=== PATIENT | female | born 1975 | race Two or more races ===

== ENCOUNTER 2021-03-25 08:52 | Emergency (ER) | payer OTHER, SELFPAY ==
--- NOTE | ~2021-03-25 | XR_ITS ---
EXAMINATION: XR lumbar spine 2-3V EXAM DATE: 03/25/2021 10:06 INDICATION: Right sided low back pain, X 2 days. No known recent injury. TECHNIQUE: Lumber spine frontal, lateral, lateral L5-S1 projections for interpretation. There is no prior study for comparison. FINDINGS: Mild lumbar facet arthropathy. Mild L4-5 and L5-S1 disc disease. The vertebral body and dis c heights are otherwise well maintained. The vertebral bodies are aligned in the AP dimension. Sacrum , sacroiliac joints, sacral arcuate lines are intact. Paraspinal soft tissue is unremarkable. IMPRESSION: Mild lumbar spondylosis. Reviewed, dictated and finalized at location A. IMPRESSION: Mild lumbar spondylosis.
[2021-03-25 08:56] VITALS: BP 128/85; PULSE 95; RESP 17; TEMP 36.4; O2SAT 100
--- NOTE | 2021-03-25 09:54 | ED.BACK ---
HPI - Back Pain/Injury General Chief Complaint: Back Pain/Injury Stated Complaint: lower right back pain Time Seen by Provider: 03/25/21 09:36 Source: patient Mode of arrival: ambulatory Limitations: no limitations History of Present Illness HPI Narrative: This is a 45-year-old female that presents to the emergency department for right-sided lower back pain present x2 days. No certain injury or trauma. Reports she does do a lot of lifting at work. Pain is in the right side of the low back. Worse with movement and palpation of the area. Pain does not radiate. She took anti-inflammatories with some relief. Denies fever, abdominal pain, vomiting, dysuria, hematuria, saddle anesthesia, or bowel/bladder incontinence. Related Data Allergies Allergy/AdvReac Type Severity Reaction Status Date / Time No Known Allergies Allergy Verified 10/23/19 06:11 Review of Systems Review of Systems: Narrative: CONSTITUTIONAL: Denies fever GASTROINTESTINAL: Denies abdominal pain, nausea, vomiting GENITOURINARY: Denies dysuria or hematuria. SKIN: Denies rash MUSCULOSKELETAL: Reports back pain, joint pain, and myalgia. NEUROLOGIC: Denies numbness, or weakness. All systems reviewed & are unremarkable except as noted in HPI and below PMFSH Past Medical History Medical History (Updated 03/25/21 @ 10:41 by Annika Gasca PA-C) History of hypertension Social History Social History (Updated 03/25/21 @ 09:56 by Annika Gasca PA-C) Substance use: never Gender identity (if verbalized by the patient): Female Exam Narrative: Exam Narrative: GENERAL: Well-appearing, well-nourished, and in no acute distress. HEAD: Normocephalic, atraumatic. EYES: EOMI. CHEST: Clear to auscultation. No respiratory distress. No wheezes rales or rhonchi HEART: Regular rate and rhythm. No murmur heard. Normal peripheral pulses. BACK: No midline spinal tenderness. Tender to palpation of right lumbar paraspinal musculature EXTREMITIES: Normal range of motion. No edema. Strength equal in bilateral lower extremities (5/5). Normal DP pulses SKIN: Warm, dry, no rash. NEURO: No focal deficits. Alert and oriented x3. PSYCH: Normal mood and affect Course Vital Signs Vital signs: Vital Signs Temperature 97.6 F 03/25/21 08:56 Pulse Rate 95 03/25/21 08:56 Respiratory Rate 17 03/25/21 08:56 Blood Pressure 128/85 03/25/21 08:56 Pulse Oximetry 100 03/25/21 08:56 Temperature 97.6 F 03/25/21 08:56 Pulse Rate 95 03/25/21 08:56 Respiratory Rate 17 03/25/21 08:56 Blood Pressure 128/85 03/25/21 08:56 Pulse Oximetry 100 03/25/21 08:56 MDM - Back Pain/Injury MDM Narrative Medical decision making narrative: Patient presents the emergency department for low back pain x2 days. No recent injury or trauma. Patient does report a lot of lifting at work. No midline spinal tenderness. Patient is tender palpation of the right lumbar paraspinal musculature. Lumbar spine x-ray shows mild lumbar spondylosis. Patient reports improvement with Tylenol and Valium. She was instructed on care of muscle strain. She is to follow-up with her primary care doctor. She was given warnings to return to the ER Imaging Data Radiologist's impression: ITS Impressions Lumbar Spine X-Ray 03/25/21 10:12 IMPRESSION: Mild lumbar spondylosis. Critical Care Time Critical Care Time Critical Care Time: No Discharge Plan Discharge Clinical Impression: Strain of lumbar region Qualifiers: Encounter type: initial encounter Qualified Code(s): S39.012A - Strain of muscle, fascia and tendon of lower back, initial encounter Patient Disposition: Home, Self-Care Condition: Stable Instructions: Acute Low Back Pain (ED) Additional Instructions: Return to the ER if you experience fever, abdominal pain with nausea and vomiting, pain or burning with urination, blood in the urine, weakness, numbness, bowel/bladder incontinence, or any o
[2021-03-25] MEDS: diazePAM INJ (*CRX) 10 MG/2 ML SYRINGE 5 MG IM (10:08)
[2021-03-25] MEDS: ACETAMINOPHEN 500 MG TABLET 1000 MG PO (10:08)
[2021-03-25 10:58] VITALS: BP 156/106; PULSE 66; RESP 14; O2SAT 99
== END 2021-03-25 10:58 | disposition home or self-care (01) ==
PROVIDERS: Emergency Provider Emergency Medicine; PCP Nurse Practitioner Family
DX: S39.012A Strain of muscle, fascia and tendon of lower back, initial encounter (principal); I10 Essential (primary) hypertension; M47.816 Spondylosis without myelopathy or radiculopathy, lumbar region; X50.9XXA Other and unspecified overexertion or strenuous movements or postures, initial encounter
CPT/HCPCS: 72100; 96372; 99283; A9270; J3360

== ENCOUNTER 2022-09-01 08:15 | Emergency (ER) | payer OTHER, SELFPAY ==
--- NOTE | ~2022-09-01 | CT_ITS ---
EXAMINATION: CT abdomen pelvis wo con DATE: 09/01/2022 09:34 INDICATION: Left flank pain. Low back pain. TECHNIQUE: Computed tomography (CT) of the abdomen and pelvis was performed without intravenous contr ast. Automated exposure control and iterative reconstruction technique were employed. The dose-length product was 240.36 mGy-cm. COMPARISON: None. FINDINGS: The visualized portions of the lung bases and is a mild atelectasis. No pleural effusion. T he heart size is normal. No pericardial effusion. The liver is normal. The gallbladder is normal in s ize. The spleen, pancreas, adrenal glands, and kidneys are normal. There is no urolithiasis. There ar e no dilated loops of bowel. The appendix is normal. There are no pathologically enlarged lymph nodes . There is no free intraperitoneal fluid. There is a 3.8 cm subserosal fibroid of the uterus. There i s mild thoracolumbar spondylosis. IMPRESSION: 1. No urolithiasis. 2. Uterine fibroid. Reviewed, dictated and finalized at location A. [employer]
[2022-09-01 08:18] VITALS: BP 153/100; PULSE 78; RESP 20; TEMP 36.7; O2SAT 100
[2022-09-01 09:01] LABS: Appearance Urine Clear (Clear); Bilirubin Urine Negative (Negative); Blood Urine Trace-intact (Negative); Color Urine Yellow (Yellow); Glucose Urine UA Negative (Negative); Ketones Urine Negative (Negative); Leukocyte Esterase Ur Negative LEU/UL (Negative); Nitrate Urine Negative (Negative); Protein Urine Negative (Negative); Specific Grav Ur 1.025 (1.001-1.035); Urobilinogen Urine 0.2 mg/dL (<2.0)
[2022-09-01 09:18] LABS: Mucus Urine Rare /lpf; Squamous Epithelial Cell Urine Occasional /hpf (Few); WBC Urine 0-3 /hpf
[2022-09-01 09:21] LABS: Add Urine Microscopic? YES
--- NOTE | 2022-09-01 09:25 | ED.BACK ---
HPI - Back Pain/Injury General Chief Complaint: Back Pain/Injury Stated Complaint: L flank pain Time Seen by Provider: 09/01/22 09:01 Source: patient Mode of arrival: ambulatory Limitations: no limitations History of Present Illness HPI Narrative: Patient is a 47-year-old female who presents the ED with report of left lower back pain. Patient reports the pain has been intermittent for the past 1 month and seems to be worse after working/standing long hours. She has been taking Tylenol, stretching, using heating pad. The pain seems to be worsening over the last couple days, at times radiates around to her left lower abdomen and down her leg. She denies history of similar pain. No history of kidney stones. Occasional nausea, but denies vomiting, dysuria, hematuria, fever, incontinence, saddle anesthesia. Related Data Allergies Allergy/AdvReac Type Severity Reaction Status Date / Time No Known Allergies Allergy Verified 09/01/22 08:38 Review of Systems Review of Systems: CONSTITUTIONAL: Denies fever, chills, or sweats. CARDIOVASCULAR: Denies chest pain. RESPIRATORY: Denies dyspnea. GASTROINTESTINAL: Reports LLQ ABD pain. Denies constipation, nausea, vomiting, or diarrhea. GENITOURINARY: Denies incontinence, dysuria or hematuria. MUSCULOSKELETAL: Reports L lower back pain, radiates down LLE. NEUROLOGIC: Denies tingling, numbness, or weakness. All systems reviewed & are unremarkable except as noted in HPI and below PMFSH Past Medical History Medical History HTN (hypertension) Surgical History Surgical History No pertinent past surgical history Social History Social History (Updated 09/01/22 @ 09:27 by Hillary Santana PA-C) Smoking status: Never smoker Substance use: never Gender identity (if verbalized by the patient): Female Exam Narrative: GENERAL: Well appearing, well-nourished, non-toxic, in no acute distress. HEAD: Normocephalic, atraumatic. NECK: Supple. No adenopathy, no masses. RESPIRATORY: Airway patent, respirations nonlabored. Clear to auscultation bilaterally, no rales, rhonchi, wheezing. CARDIOVASCULAR: Regular rate and rhythm without murmurs, rubs, or gallops. Peripheral pulses 2+ and equal bilaterally. ABDOMINAL: Soft, no significant tenderness to palpation, nondistended, no hepatosplenomegaly. Normoactive BS. MUSCULOSKELETAL: Moves all extremities. Strength/ROM intact without gross deformities. No midline thoracic or lumbar spinal tenderness. No bony deformities or step-offs. Point tenderness over left SI joint. Positive straight leg raise on left with reproduction of pain in left lower back. SKIN: Warm, dry, normal color. No rashes. NEURO: A&O X3. Speech clear. Cranial nerves II-XII grossly intact. Steady gait. No ataxic movements. PSYCHIATRIC: Appropriate mood and affect. Normal interaction. Course Vital Signs Vital signs: Vital Signs Temperature 98.0 F 09/01/22 08:18 Pulse Rate 78 09/01/22 08:18 Respiratory Rate 20 09/01/22 08:18 Blood Pressure 153/100 H 09/01/22 08:18 Pulse Oximetry 100 09/01/22 08:18 Oxygen Delivery Room Air 09/01/22 08:18 Temperature 98.0 F 09/01/22 08:18 Pulse Rate 78 09/01/22 08:18 Respiratory Rate 20 09/01/22 08:18 Blood Pressure 153/100 H 09/01/22 08:18 Pulse Oximetry 100 09/01/22 08:18 Oxygen Delivery Room Air 09/01/22 08:18 MDM - Back Pain/Injury MDM Narrative Medical decision making narrative: Patient presented to ED with 1 month history of intermittent left lower back pain, radiating to abdomen and down leg. Vital stable upon arrival. Exam consistent with sciatica with point tenderness over SI joint, reproduction of pain with straight leg raise. No red flag symptoms. No signs of cord compression or cauda equina. No systemic symptoms. No midline spinal tenderness. Patient did h
[2022-09-01] MEDS: KETOROLAC (*BKC) 60 MG/2 ML VIAL IM (10:51)
== END 2022-09-01 10:25 | disposition home or self-care (01) ==
PROVIDERS: Emergency Provider Emergency Medicine; PCP Nurse Practitioner Family
DX: M54.16 Radiculopathy, lumbar region (principal); M54.32 Sciatica, left side; I10 Essential (primary) hypertension
CPT/HCPCS: 74176; 81001; 81025; 96372; 99284; J1885

== ENCOUNTER 2023-02-14 14:26 | Emergency (ER) | payer OTHER, SELFPAY ==
--- NOTE | 2023-02-14 15:07 | PC.NURSE ---
called to be triaged not in waiting room at this time.
--- NOTE | 2023-02-14 15:20 | PC.NURSE ---
called again to be triaged, not in waiting
== END 2023-02-14 15:50 | disposition left against medical advice (07) ==
PROVIDERS: PCP Nurse Practitioner Family
DX: Z53.21 Procedure and treatment not carried out due to patient leaving prior to being seen by health care provider (principal)
CPT/HCPCS: 99199

== ENCOUNTER 2023-06-15 23:21 | Emergency (ER) | payer OTHER, SELFPAY ==
--- NOTE | 2023-06-15 23:40 | PC.NURSE ---
Pt left before being triaged.
== END 2023-06-15 23:40 | disposition left against medical advice (07) ==
LOC: ANHED 23:44
PROVIDERS: PCP Nurse Practitioner Family
DX: Z53.21 Procedure and treatment not carried out due to patient leaving prior to being seen by health care provider (principal)
CPT/HCPCS: 99199

== ENCOUNTER 2023-06-17 17:46 | Emergency (ER) | payer OTHER, SELFPAY ==
[2023-06-17 18:21] VITALS: BP 172/100; PULSE 83; RESP 16; TEMP 36.9; O2SAT 100
--- NOTE | 2023-06-17 19:56 | ED.BACK ---
HPI - Back Pain/Injury General Chief Complaint: Back Pain/Injury Stated Complaint: back pain Time Seen by Provider: 06/17/23 19:15 History of Present Illness HPI Narrative: Patient is a 48-year-old female presenting with lower back pain. Patient states that she has intermittent chronic lower back pain and has had episodes of sciatica in the past. She broke her left ankle several months ago and had to have surgery. States that she has been recovering well in regards to this injury but she feels that she has been compensating by using her right leg more. States that unfortunately she has had an acute exacerbation of her lower back pain. States that it radiates into both of her buttocks and shoots down her left leg. Is worse with certain movements. States that she has been taking Tylenol with minimal relief. No numbness or weakness, saddle anesthesia, fevers or chills, bladder or bowel incontinence. No recent injuries. Related Data Allergies Allergy/AdvReac Type Severity Reaction Status Date / Time No Known Allergies Allergy Verified 06/17/23 18:26 Review of Systems Review of Systems: All systems reviewed & are unremarkable except as noted in HPI and below PMFSH Past Medical History Medical History HTN (hypertension) Surgical History Surgical History No pertinent past surgical history Social History Social History Smoking status: Never smoker Substance use: never Gender identity (if verbalized by the patient): Female Exam Narrative: GENERAL: Well-appearing and in no acute distress. Very pleasant and cooperative HEAD: Normocephalic, atraumatic. EYES: PERRLA and EOMI. ENT: No epistaxis NECK: Supple. CHEST: No respiratory distress. HEART: Regular rate and rhythm. Normal peripheral pulses. ABDOMEN: nondistended. EXTREMITIES: Normal range of motion. No edema. 2+ DP bilaterally BACK: +bilateral paraspinal tenderness lumbar spine extending into both buttocks SKIN: Warm, dry, no rash. NEURO: Alert and oriented x3. 5/5 strength BLE PSYCH: Normal mood and affect. Course Vital Signs Vital signs: Vital Signs Temperature 98.5 F 06/17/23 18:21 Pulse Rate 83 06/17/23 18:21 Respiratory Rate 16 06/17/23 18:21 Blood Pressure 172/100 H 06/17/23 18:21 Pulse Oximetry 100 06/17/23 18:21 Oxygen Delivery Room Air 06/17/23 18:21 Temperature 98.5 F 06/17/23 18:21 Pulse Rate 83 06/17/23 18:21 Respiratory Rate 16 06/17/23 18:21 Blood Pressure 172/100 H 06/17/23 18:21 Pulse Oximetry 100 06/17/23 18:21 Oxygen Delivery Room Air 06/17/23 18:21 MDM - Back Pain/Injury MDM Narrative Medical decision making narrative: Patient is a 48-year-old female presenting with acute on chronic lower back pain. Vitals are stable. Exam remarkable for the above. Patient states that this exacerbation is in the setting of a recent ankle injury that has been causing her to compensate with her right leg. States that she has been taking Tylenol with minimal relief. She denies any red flag symptoms or recent trauma necessitating imaging. We will give her a dose of IM Toradol and a dose of prednisone. We will send in for a steroid burst as well as 800 mg ibuprofen and Flexeril to be used as needed. Advised PCP follow-up. Appropriate return precautions given. Patient voiced understanding and is agreeable with plan. Discharged in stable condition. Differential Diagnosis Differential diagnosis: Likely lumbar radiculopathy, sciatica and strain of lumbar region Medical Records Attestation: I reviewed the patient's medical records. Critical Care Time Critical Care Time Critical Care Time: No Discharge Plan Discharge Clinical Impression: Lumbar radiculopathy Patient Disposition: Home, Self-Care Condition: Stable
[2023-06-17 20:00] VITALS: BP 170/91; PULSE 93; RESP 18; O2SAT 100
[2023-06-17] MEDS: predniSONE 20 MG TABLET 40 MG PO (20:02)
[2023-06-17] MEDS: KETOROLAC 30 MG/ML VIAL (*BKC) IM (20:03)
== END 2023-06-17 20:21 | disposition home or self-care (01) ==
LOC: ANHED 20:10
PROVIDERS: Emergency Provider Emergency Medicine; PCP Nurse Practitioner Family
DX: M54.16 Radiculopathy, lumbar region (principal); I10 Essential (primary) hypertension
CPT/HCPCS: 96372; 99283; J1885; J7512

== ENCOUNTER 2025-03-08 06:08 | Emergency (ER) | payer BC, SELFPAY ==
--- OUTSIDE RECORDS SUMMARY | 2025-03-08 06:09 | XMS_ITS | Data Portability ---
Author Organization [facility] Address [address] [place] [address] Care Team Providers Care Cashier Office Name Role Phone JIM MORALES Primary Care Provider Assessment No assessment recorded. Plan of Treatment Reminders Order Date Submit Date Provider Last Modified By Organization Details Last Modified Time Details Appointments ACUTE 15 2024 04:00P JERMAN Mckeon Not available Not available Not available Lab lipid panel, serum 2023 024 [facility], [address] [place], [place] [address]kayce Diogo, [address], [place], [address], 05/02/2024 10:15:47 CMP, serum or plasma 2023 024 [facility], [address] [place] [address], [address], [place], [address], 05/02/2024 10:15:48 albumin/c reatinine , mass ratio, urine 2023 024 [facility], [address] [place] [address], [address], [place], [address], 05/02/2024 10:15:46 pap, IG + HR HPV 2023 024 [facility], [address] [place] [address], [address], [place], [address], 05/03/2024 14:16:24 Referral physical therapist referral - left sided sciatica- please eval and treat 2023 024 [facility], [address], [place], [address], 10/26/2024 11:01:37 gastroent erologist referral - due for colon cancer screening 2023 [facility], [address], [address], [place], [address], 11/12/2024 12:16:45 Procedures None recorded. Surgeries None recorded. Imaging MAMMO, screening , digital, bilateral 2023 [facility] Scheduling, [facility], [place], [address], 07/24/2024 09:47:45 Medication Orders losartan 100 mg tablet 2023 024 [facility]45931, [address], [place], [place], [id number], 09/26/2024 17:21:39 amlodipin e 5 mg tablet 2023 024 [facility] #06488, [address], [place], [place], [id number], 09/26/2024 17:21:35 losartan 100 mg tablet 2023 024 [facility] #46053, [address], [place], [place], [id number], 09/11/2024 10:38:56 amlodipin e 5 mg tablet 2023 024 [facility] #[id number], [address], [place], [place], [id number], 08/09/2024 17:21:34 cyclobenz aprine 10 mg tablet 2023 024 [facility] #40398, [address], [place], [place], [id number], 09/11/2024 10:39:22 losartan 50 mg tablet 2023 024 [facility] #01233, [address], [place], [place], [id number], 09/11/2024 10:39:20 amlodipin e 5 mg tablet 2023 024 [facility] #[id number], [address], [place], [place], [id number], 07/11/2024 14:57:59 amlodipin e 5 mg tablet 2023 024 [facility] #[id number], [address], [place], [place], [id number], 05/01/2024 09:40:01 losartan 25 mg tablet 2023 024 [facility] #58059, [address], [place], [place], [id number], 07/11/2024 14:57:53 sertralin e 50 mg tablet 2023 024 [facility] #[id number], [address], [place], [place], [id number], 07/11/2024 14:59:53 Patient TargetsNo targets recorded. Patient Instructions Encounter Date Encounter Id Patient Instructions Last Modified By Organization Details Last Modified Time 05/01/2024 [id number] A healthy lifestyle: care instructions Not available 05/01/2024 09:39:07 07/11/2024 [id number] piriformis syndrome: exercises Not available 07/12/2024 22:39:11 Reason for Referral Stonemason Referral for Screening for malignant neoplasm of colon due for colon cancer screening Referring Physician: Jim Morales, [facility], Encounter Date: 07/11/2024 Physical Therapist Referral for Left side sciatica left sided sciatica- please eval and treat Referring Physician: Jim Morales [employer], Encounter Date: 08/09/2024 Results Created Date Observation Date Name Description Value Unit Range Abnormal Flag Note LastModifiedBy Organization Detail LastModifiedTime 04/12/2004/12/2023 Staph yloco ccus aureu s and Methi cilli n-res istan t Staph yloco ccus aureu s panel - Nose by CRISTINA with probe detec tion MRSA, nasal NEGATI VE MRSA, nasal Not Available Not Available 12/25/2024 05:17:05 04/12/2004/12/2023 Staph yloco ccus aureu s and Methi cilli n-res istan t Staph yloco ccus aureu s panel - Nose by CRISTINA with probe detec tion staph aureus, nasal NEGATI VE staph aureu s, nasal Not Available Not Available 12/25/2024 05:17:05 05/01/20 24 05/02/2024 ALBUM IN/CR EATIN INE RATIO ,URIN E creatinine, urine 91.8 mg/dL notest ab. Not Available [facility] ([facility]) [address] [place], [address], 05/02/2024 10:15:46 05/01/20 24 05/02/2024 ALBUM IN/CR EATIN INE RATIO ,URIN E albumin, urine <3.0 ug/mL notest ab. Not Available [facility] ([facility]) [address] [facility], [place], [address], 05/02/2024 10:15:46 05/01/20 24 05/02/2024 ALBUM IN/CR EATIN INE RATIO ,URIN E alb/creat ratio <3 Eugenia l: 0 - 29 Moder ately incre ased: 30 - 300 Sever elsie incre ased: >300 Not Available [facility] ([facility]) [address] [place], [address], 05/02/2024 10:15:46 05/01/20 24 05/02/2024 LIPID PANEL cholesterol, total 203 mg/dL 100-19 9 above high normal Not Available [facility] ([facility]) [address] [place], [address], 05/02/2024 10:15:47 05/01/20 24 05/02/2024 LIPID PANEL triglyceride s 116 mg/dL 0-149 Not Available [facility] ([facility]) [address] [place], [address], 05/02/2024 10:15:47 05/01/20 24 05/02/2024 LIPID PANEL HDL cholesterol 62 mg/dL >39 Not Available [facility] ([facility]) [address] [place], [address], 05/02/2024 10:15:47 05/01/20 24 05/02/2024 LIPID PANEL VLDL cholesterol aiden 21 mg/dL 5-40 Not Available [facility] ([facility]) [address] [place], [address], 05/02/2024 10:15:47 05/01/20 24 05/02/2024 LIPID PANEL LDL chol calc ([facility]) 120 mg/dL 0-99 above high normal Not Available [facility] ([facility]) [address] [place], [address], 05/02/2024 10:15:47 05/01/20 24 05/02/2024 COMP. METAB OLIC PANEL (14) glucose 89 mg/dL 70-99 Not Available [facility] ([facility]) [address] [place], [address], 05/02/2024 10:15:48 05/01/20 24 05/02/2024 COMP. METAB OLIC PANEL (14) BUN 13 mg/dL 6-24 Not Available [facility] ([facility]) [address] [facility], [place], [address], 05/02/2024 10:15:48 05/01/20 24 05/02/2024 COMP. METAB OLIC PANEL (14) creatinine 0.82 mg/dL 0.57-1 .00 Not Available [facility] ([facility]) [address] [facility], [place], [address], 05/02/2024 10:15:48 05/01/20 24 05/02/2024 COMP. METAB OLIC PANEL (14) eGFR 88 mL/mi n/1.7 3 >59 Not Available [facility] ([facility]) [address] [facility], [place], [address], 05/02/2024 10:15:48 05/01/20 24 05/02/2024 COMP. METAB OLIC PANEL (14) BUN/creatini ne ratio 16 9-23 Not Available [facility] ([facility]) [address] [facility], [place], [address], 05/02/2024 10:15:48 05/01/20 24 05/02/2024 COMP. METAB OLIC PANEL (14) sodium 142 mmol/ L 134-14 4 Not Available [facility] ([facility]) [address] [place], [address], 05/02/2024 10:15:48 05/01/20 24 05/02/2024 COMP. METAB OLIC PANEL (14) potassium 4.8 mmol/ L 3.5-5. 2 Not Available [facility] ([facility]) [address] [place], [address], 05/02/2024 10:15:48 05/01/20 24 05/02/2024 COMP. METAB OLIC PANEL (14) chloride 104 mmol/ L 96-106 Not Available [facility] ([facility]) [address] [place], [address], 05/02/2024 10:15:48 05/01/20 24 05/02/2024 COMP. METAB OLIC PANEL (14) carbon dioxide, total 24 mmol/ L 20-29 Not Available [facility] ([facility]) [address] [place], [address], 05/02/2024 10:15:48 05/01/20 24 05/02/2024 COMP. METAB OLIC PANEL (14) calcium 10.1 mg/dL 8.7-10 .2 Not Available [facility] ([facility]) [address] [place], [address], 05/02/2024 10:15:48 05/01/20 24 05/02/2024 COMP. METAB OLIC PANEL (14) protein, total 7.3 g/dL 6.0-8. 5 Not Available [facility] ([facility]) [address] [place], [address], 05/02/2024 10:15:48 05/01/20 24 05/02/2024 COMP. METAB OLIC PANEL (14) albumin 4.3 g/dL 3.9-4. 9 Not Available [facility] ([facility]) [address] [facility] [place], [address], 05/02/2024 10:15:48 05/01/20 24 05/02/2024 COMP. METAB OLIC PANEL (14) globulin, total 3.0 g/dL 1.5-4. 5 Not Available [facility] ([facility]) [address] [facility] [place], [address], 05/02/2024 10:15:48 05/01/20 24 05/02/2024 COMP. METAB OLIC PANEL (14) bilirubin, total <0.2 mg/dL 0.0-1. 2 Not Available [facility] ([facility]) [address] [place], [address], 05/02/2024 10:15:48 05/01/20 24 05/02/2024 COMP. METAB OLIC PANEL (14) alkaline phosphatase 72 IU/L 44-121 Not Available [facility] ([facility]) [address] [place], [address], 05/02/2024 10:15:48 05/01/20 24 05/02/2024 COMP. METAB OLIC PANEL (14) AST (SGOT) 19 IU/L 0-40 Not Available [facility] ([facility]) [address] [place], [address], 05/02/2024 10:15:48 05/01/20 24 05/02/2024 COMP. METAB OLIC PANEL (14) ALT (SGPT) 14 IU/L 0-32 Not Available [facility] ([facility]) [address] [place], [address], 05/02/2024 10:15:48 05/01/20 24 05/02/2024 IGP, MAI HPV16 /18 HPV other HR types NEGATI VE negati ve Not Available [facility] ([facility]) [address] [place], [address], 05/03/2024 14:16:24 05/01/20 24 05/02/2024 IGP, MAI HPV16 /18 HPV 16 NEGATI VE negati ve Not Available [facility] ([facility]) [address] [place], [address], 05/03/2024 14:16:24 05/01/20 24 05/02/2024 IGP, MAI HPV16 /18 HPV 18 NEGATI VE negati ve This nucle ic acid ampli ficat ion test detec ts fourt een high- risk HPV types : HPV16 , HPV18 and twelv e other high- risk types (31,3 3,35, 39,45 ,51,5 2,56, 58,59 ,66,6 8) witho ut diffe renti ation . Not Available [facility] ([facility]) [address] [place], [address], 05/03/2024 14:16:24 05/01/20 24 05/03/2024 IGP, MAI HPV16 /18 diagnosis: LILI ANGLIN FOR INTRA EPITH ELIAL LESIO N OR SHANICE BARRIENTOS . THIS SPECI MEN WAS RESCR EENED PART OF OUR QUALI TY CONTR OL PROGR AM. Not Available [facility] ([facility]) [address] [place], [address], 05/03/2024 14:16:24 05/01/20 24 05/03/2024 IGP, MAI HPV16 /18 specimen adequacy: LILI Messina Satis facto ry for evalu ation . Endoc ervic al and/o r squam ous metap lasti c cells (endo cervi iaden compo nent) are prese nt. Not Available [facility] ([facility]) [address] [place], [address], 05/03/2024 14:16:24 05/01/20 24 05/03/2024 IGP, MAI HPV16 /18 clinician provided ICD10: LILI Messina Z01.4 19 I10 Not Available [facility] ([facility]) [address] [place], [address], 05/03/2024 14:16:24 05/01/20 24 05/03/2024 IGP, MAI HPV16 /18 performed by: Ana María Davis (ASCP ) Not Available [facility] ([facility]) [address] [place], [address], 05/03/2024 14:16:24 05/01/20 24 05/03/2024 IGP, MAI HPV16 /18 QC reviewed by: LILI Bertrand r, Cytot taylor messina Not Available [facility] ([facility]) [address] [facility], [place], [address], 05/03/2024 14:16:24 05/01/20 24 05/03/2024 IGP, MAI HPV16 /18 . . Not Available [facility] ([facility]) [address] [facility], [place], [address], 05/03/2024 14:16:24 05/01/20 24 05/03/2024 IGP, MAI HPV16 /18 note: LILI Messina The Pap smear is a scree marvin test desig abbey to aid in the detec tion of jasmyne ligna nt and malig nant condi tions of the uteri ne cervi x. It is not a diagn ostic proce dure and shoul d not be used as the sole means of detec ting cervi aiden cance r. Both false -posi tive and false -nega tive repor ts do occur . Not Available [facility] ([facility]) [address] [facility], [place], [address], 05/03/2024 14:16:24 05/01/20 24 05/03/2024 IGP, MAI HPV16 /18 test methodology: LILI Messina This liqui d based ThinP rep(R ) pap test was scree abbey with the use of an image guide tigre lee. Not Available [facility] ([facility]) [address] [facility], [place], [address], 05/03/2024 14:16:24 Result Notes None recorded. Problems Name Problem SNOMED Code Status Onset Date Resolution Date Notes Provider Name and Address Organization Details Recorded Time Herpes simplex 32579574 Active + HSV 1&2 JERMAN Parry Attn: Leo g,[address] [facility], [place], [address], [facility] 6 15:35:31 Vaginal discharge 683294008 Active Jace Judge PA-C Attn: Leo guy,[address] [facility], [place], [address], [facility] 6 16:31:05 Essential hypertension 33404184 Active 2016 JERMAN Parry Attn: Leo guy,[address] [facility], [place], [address], [facility] 7 14:58:28 Problem Notes None recorded. Medical Equipment None Reported. Allergies No known drug allergies Medications Name Sig Start Date Stop Date Status Note LastModified by Organization Details LastModified Time losartan 50 mg tablet TAKE 1 TABLET BY MOUTH EVERY DAY 09/11 completed Not Available Not Available Not Available cyclobenzap rine 10 mg tablet TAKE 1 TABLET BY MOUTH EVERY NIGHT AT BEDTIME NEEDED 09/11 completed Not Available Not Available Not Available ibuprofen 800 mg tablet TAKE 1 TABLET BY MOUTH THREE TIMES DAILY NEEDED FOR PAIN 05/01 completed Not Available Not Available Not Available fluconazole 150 mg tablet Take 1 tablet PO x1 today. Repeat dose in 72 hours. 02/23 completed Not Available Not Available Not Available meloxicam 15 mg tablet TAKE 1 TABLET BY MOUTH EVERY MORNING WITH FOOD 01/19 completed Not Available Not Available Not Available prednisone 20 mg tablet TAKE 2 TABLETS BY MOUTH DAILY 04/17 completed Not Available Not Available Not Available metronidazo le 500 mg tablet Take 1 tablet every 12 hours by oral route for 7 days. 02/23 completed Not Available Not Available Not Available amlodipine 5 mg tablet TAKE 1 TABLET BY MOUTH EVERY DAY active Not Available Not Available No t Available acetaminoph en 500 mg tablet TAKE 2 TABLETS BY MOUTH EVERY 6 HOURS. MAX 4000 MG ACETAMINO PHEN TYLENOL PER 24 HOURS 05/01 completed Not Available Not Available Not Available lidocaine 5 % topical patch APPLY 1 PATCH TO SKIN ONCE A DAY 04/17 completed Not Available Not Available Not Available losartan 25 mg tablet TAKE 1 TABLET BY MOUTH DAILY 07/11 completed Not Available Not Available Not Available aspirin 81 mg chewable tablet TAKE 1 TABLET BY MOUTH TWICE DAILY 05/01 completed Not Available Not Available Not Available losartan 100 mg tablet TAKE 1 TABLET BY MOUTH EVERY DAY active Not Available Not Available No t Available naproxen 500 mg tablet TAKE 1 TABLET BY MOUTH TWICE DAILY 04/17 completed Not Available Not Available Not Available oxycodone 5 mg tablet TAKE 1 TABLET BY MOUTH EVERY 4 HOURS NEEDED 04/17 completed Not Available Not Available Not Available cyclobenzap rine 5 mg tablet TAKE 1 TABLET BY MOUTH THREE TIMES DAILY NEEDED FOR MUSCLE SPASM 04/17 completed Not Available Not Available Not Available lidocaine 5 % topical ointment APPLY 1 GRAM TOPICALLY TO THE AFFECTED AREA FOUR TIMES DAILY 04/17 completed Not Available Not Available Not Available Vitals Date Recorded Body height Body temperature Heart rate Systolic blood pressure Diastolic blood pressure Provider Name and Address Organization Details Last Updated DateTime 05/02/2023 162.56 cm 98.1 [degF] 69 /min 145 mm[Hg] 92 mm[Hg] Kinza Lu MA [facility] 3 09:14:31 Date Recorded Systolic blood pressure Diastolic blood pressure Provider Name and Address Organization Details Last Updated DateTime 05/02/2023 142 mm[Hg] 90 mm[Hg] JERMAN Parry Attn: Accounting,[address] [place], [address], [facility] 05/02/2023 09:40:38 Date Recorded Body height Body mass index (BMI) Body weight Body temperature Heart rate Systolic blood pressure Diastolic blood pressure Provider Name and Address Organization Details Last Updated DateTime 162.56 cm 30.4 kg/m2 35250.8 5 g 97.1 [degF] 62 /min 198 mm[Hg] 131 mm[Hg] Nel Xie MA [facility] 4 09:09:18 Date Recorded Systolic blood pressure Diastolic blood pressure Provider Name and Address Organization Details Last Updated DateTime 05/01/2024 168 mm[Hg] 120 mm[Hg] JERMAN Parry Attn: Accounting,[address] [place], [address], [facility] 05/01/2024 09:23:53 Date Recorded Body height Body mass index (BMI) Body weight Body temperature Heart rate Oxygen saturation Oxygen saturation in Arterial blood by Pulse oximetry Systolic blood pressure Diastolic blood pressure Provider Name and Address Organization Details Last Updated DateTime 4 162.56 cm 30.4 kg/m2 84859.8 5 g 97.5 [degF] 76 /min 100 % 100 % 165 mm[Hg] 109 mm[Hg] Kinza Lu MA [facility] 4 14:44:52 Date Recorded Body height Body mass index (BMI) Body weight Body temperature Heart rate Oxygen saturation Oxygen saturation in Arterial blood by Pulse oximetry Systolic blood pressure Diastolic blood pressure Provider Name and Address Organization Details Last Updated DateTime 4 162.56 cm 30 kg/m2 69663.6 6 g 97.3 [degF] 87 /min 99 % 99 % 157 mm[Hg] 113 mm[Hg] Jing ng MA [facility] 4 16:57:48 Date Recorded Systolic blood pressure Diastolic blood pressure Provider Name and Address Organization Details Last Updated DateTime 08/09/2024 150 mm[Hg] 92 mm[Hg] JERMAN Parry Attn: Accounting,[address] [place], [address], [facility] 08/09/2024 17:18:11 Date Recorded Body height Body mass index (BMI) Body weight Body temperature Oxygen saturation Oxygen saturation in Arterial blood by Pulse oximetry Heart rate Systolic blood pressure Diastolic blood pressure Provider Name and Address Organization Details Last Updated DateTime 4 162.56 cm 32.1 kg/m2 29678.7 7 g 97.7 [degF] 99 % 99 % 86 /min 153 mm[Hg] 98 mm[Hg] Kinza Lu MA [facility] 4 17:12:42 Date Recorded Systolic blood pressure Diastolic blood pressure Provider Name and Address Organization Details Last Updated DateTime 09/26/2024 132 mm[Hg] 88 mm[Hg] JERMAN Parry Attn: Accounting,[address] [place], [address], [facility] 09/26/2024 17:20:57 Social History Question Answer Notes LastModified by Organizat ion Details LastModified Time Tobacco Smoking Status Former Smoker Kinza ZAIN Lu null, [place] - [place] 02/23/2017 14:34:27 What Was The Date Of Your Most Recent Tobacco Screening? 05/01/2024 [email or web address] Information not available 05/01/2024 Has Tobacco Cessation Counseling Been Provided? No Information not available 01/19/2021 How Many Years Have You Smoked Tobacco? 10 [email or web address] Information not available 06/17/2017 Sex: Unknown Functional Status Question Answer Note LastModified by Organizat ion Details LastModified Time Do you use any illicit or recreational drugs? No Information not available 01/19/2021 Do you or have you ever used any other forms of tobacco or nicotine? No Information not available 01/19/2021 Do you or have you ever used smokeless tobacco? Never used smokeless tobacco Information not available 03/26/2020 Do you or have you ever used e-cigarettes or vape? Never used electronic cigarettes Information not available 03/26/2020 Mental Status None recorded. Family History Nothing Reported. Medical History No medical history recorded. Gynecological HistoryNo gynecological history recorded. Obstetrics History GPAL:G 0 P 0 0 0 0 Immunizations Vaccine Type Date Status Note Provider Nam e and Address Organization Details Recorded Time Tdap 2011 completed JERMAN Parry Attn: Accounting[address] [place], [address], [facility] 05/01/2024 09:16:23 Past Encounters Encounter ID Performer Location Encounter Start Date Encounter Closed Date Diagnosis/Indication Diagnosis SNOMED-CT Code Diagnosis ICD10 Code Diagnosis Note [id number] MD Patricia Zamudio FP ([facility]) [address] [facility]3][place] [address] 01/21/2016 10:36:19 01/22/2016 10:51:36 Gynecologic examination 83153655 Z01.419 PAP performed. Discussed mammograms starting at age 40. Venereal d isease screening 483322746 Z11.3 Requesting STI screening since she has recently split from her partner. Adult heal th examination 392455809 Z00.00 Will obtain baseline labs. Discussed moods, feels like she is going through normal grieving for the end of a relationsh ip, may return at any time if her moods do not start improving over time. Abnormal b lood pressure 61587177 Z01.31 Will need to return for a second blood pressure reading. Discussed lifesytle modificati ons. Ms Chiu believes her BP is elevated from recent stress and sadness. [id number] Jaec Judge PA-C [facility] [address] [facility] [address] [place] [address] 04/16/2016 16:22:39 04/16/2016 17:42:05 Vaginal discharge 145966768 N89.8 [id number] Jace Judge PA-C [facility] [address] [facility] [address] [place] [address] 06/07/2016 15:24:37 06/07/2016 16:31:33 Vaginal discharge 307387714 N89.8 [id number] MD Patricia Escamilla FP ([facility]) [address] [place] [address], [place] [address] 12/10/2016 14:22:33 12/13/2016 10:09:26 Vaginal discharge 439902496 N89.8 Appears to be yeast, swab sent and will treat with fluconazol e. Should abstain from sex until results are available. Elevated blood-pressure reading without diagnosis of hypertension 764298905 R03.0 Discussed lifestyle changes today. Informatio n given on DASH diet. Discussed exercise, weight reduction and smoking cessation. Will see back in 1 month for BP check. [id number] MD Patricia Escamilla [facility] ([facility]) [address] [place] [address], [place] [address] 02/23/2017 14:30:28 03/01/2017 17:35:20 Essential hypertension 84739418 I10 Has several BP not at goal. Will start amlodipine daily for BP goal less than 140/90. May be cause of headache. Should also follow DASH diet. Encouraged BP monitoring at home. See back 2 weeks for BP check. Pruritus of vagina 88115 003 L29.3 Will send swab to rule out yeast infection. Headache 10131861 R51 Differenti al includes HTN vs stress and tension headaches. Encouraged to keep a headache diary. Will address at f/u visit. [id number] JERMAN Parry FP ([facility]) [address] [place] [address] 06/17/2017 13:40:27 06/22/2017 17:32:59 Daily headache 6996773267 03 R51 Symptoms are not consistent with migraine. Suspicious for tensions headaches. May continue OTC pain medication s as needed. Encouraged to monitor symptoms over the weekend since she will not be working to see if her headaches are better. Report to the ER for worsening headache, sudden blurry vision or weakness. Essential hypertension 90231104 I10 Controlled . Continue current medication . [id number] JERMAN Parry FP ([facility]) [address] [place] [address] 01/13/2018 09:39:02 01/16/2018 10:12:56 Adult health examination 475264038 Z00.00 -Pap up to date -Due for mammogram -Will call with Tdap date, thinks she is up to date -Discussed healthy diet and exercise- joined a gym and trying to eat less red meat and low carb -Negative depression screening Screening for malignant neoplasm of breast 821045449 Z12.31 Essential hypertension 68940075 I10 -Almost at goal, did not take medication this morning. BP goal less than 140/90.-Du e for labs-Encou raged low sodium diet and exercise. [id number] JERMAN Parry FP ([facility]) [address] [place] [address] 03/26/2020 15:07:26 03/27/2020 08:20:17 Essential hypertension [id number] I10 -restart amlodipine -Goals: BP < 140/90 per JNC8, prevent CV and renal comorbidit ies.-Steve landeros notify office for BP less than 90/60.-Iza mendoza a low sodium (less than 2000mg) diet and encouraged at least 30-45 minutes of aerobic activity most days of the week-Encou raged smoking cessation. -f/u 1 mop for BP check Obesity [id number] E66.9 -check TSH-discus sed diet & exercise [id number] Jim Holthaus, BANANA EXPERT-[facility] [place] [facility] ([facility]) [address] [place] [address] 05/26/2020 12:52:30 05/27/2020 07:50:57 Essential hypertension [id number] I10 -restart amlodipine - encouraged better med compliance and f/u visits-Goa ls: BP < 140/90 per JNC8, prevent CV and renal comorbidit ies.-Steve landeros notify office for BP less than 90/60.-esther e cuff ordered, can send BP readings through pt portal-Iza ntain a low sodium (less than 2000mg) diet and encouraged at least 30-45 minutes of aerobic activity most days of the week-Encou raged smoking cessation. -f/u 1 mo for BP check [id number] [facility] ([facility]) [address] [place] [address] 01/19/2021 14:58:11 01/20/2021 11:24:55 Essential hypertension [id number] I10 -restart amlodipine - encouraged better med compliance and f/u visits -Goals: BP < 140/90 per JNC8, prevent CV and renal comorbidit ies. -Should notify office for BP less than 90/60. -has home BP cuff, encouraged home monitorin -Maintain a low sodium (less than 2000mg) diet and encouraged at least 30-45 minutes of aerobic activity most days of the week -f/u 2 weeks for nurse visit for BP check Gynecologi c examination [id number] Z01.419 -PAP performed. -start mammograms , order provided -neg depression screen Screening mammography 24 191431 Z12.31 Obesity 914641179 E66.9 -check TSH- has old lab orders -discussed diet & exercise [id number] [facility] ([facility]) [address] [place] [address] 04/08/2021 10:35:54 04/10/2021 08:31:44 [id number] JERMAN Parry [place] ([facility]) [address] [place] [address] 05/12/2021 17:29:23 05/14/2021 10:12:00 Essential hypertension 59013731 I10 -at goal on repeat, cont amlodipine at 5 mg daily -Goals: BP < 140/90 per JNC8, prevent CV and renal comorbidit ies. -Should notify office for BP less than 90/60. -has home BP cuff, encouraged home monitorin -Maintain a low sodium (less than 2000mg) diet and encouraged at least 30-45 minutes of aerobic activity most days of the week-f/u 6 months Lumbago with sciatica 20 5853036 M54.41 -refer to PT-cont cyclobenza leigh ann as needed, switch to tylenol for pain control-pr ovided home stretches- tylenol, heat/ice and epsom salt soaks for additional pain control [id number] Jim Morales NP-[facility] ([facility]) [address] [place] [address] 05/02/2023 09:05:54 05/07/2023 12:04:02 Closed fracture of lateral malleolus [id number] S82.64XD -est with ortho-[facility] on 04/12/2023 -pain controlled Essential hypertension 83230923 I10 -almost at goal, cont amlodipine at 5 mg daily -Goals: BP < 140/90 per JNC8, prevent CV and renal comorbidit ies. -Should notify office for BP less than 90/60. -has home BP cuff, encouraged home monitorin -Maintain a low sodium (less than 2000mg) diet and encouraged at least 30-45 minutes of aerobic activity most days of the week-f/u 3 months [id number] MD [facility] ([facility]) [address] [place] [address] 05/01/2024 09:00:46 05/03/2024 12:49:34 Adjustment disorder with depressed mood 51428330 F43.21 -PHQ-9 elevated-s tart SSRI-Consi di cognitive- behavioral therapy (CBT), interperso nal therapy (IPT), or other evidence-b ased psychother apeutic interventi ons. These therapies can help patients develop coping strategies , improve problem-so lving skills, and address underlying issues contributi ng to depression .- participat es in counseling -Encourage d the adoption of healthy lifestyle habits, including regular exercise, balanced diet, adequate sleep, and stress management techniques . These lifestyle modificati ons can complement other treatment modalities and promote overall well-being .-Encourag ed connection s with support networks, such as family, friends, or support groups. Social support can provide emotional validation , practical assistance , and a sense of belonging, which are beneficial for individual s with depression .-report to ER for SI-f/u 1 month Essential hypertension 95535479 I10 -not at goal, off medication s. start amlodipine and losartan today -Goals: BP < 140/90 per JNC8, prevent CV and renal comorbidit ies. -Should notify office for BP less than 90/60. -has home BP cuff, encouraged home monitorin -Maintain a low sodium (less than 2000mg) diet and encouraged at least 30-45 minutes of aerobic activity most days of the week-f/u 1 month Gynecologi c examination normal [id number] Z01.419 -PAP collected and sent-revie tue SBE-due for mammogram Screening mammography 24 706137 Z12.31 Obesity 768167024 E66.8 [id number] Radha Lanier MD [facility] ([facility]) [address] [place] [address] 07/11/2024 14:36:04 07/13/2024 15:28:28 Essential hypertension 00563594 I10 -not at goal, off medication s. start amlodipine and losartan today -Goals: BP < 140/90 per JNC8, prevent CV and renal comorbidit ies. -Should notify office for BP less than 90/60. -has home BP cuff, encouraged home monitorin -Maintain a low sodium (less than 2000mg) diet and encouraged at least 30-45 minutes of aerobic activity most days of the week-f/u 1 month Screening for malignant neoplasm of colon 039487122 Z12.11 Left side sciatica 67349 [id number] 55767 M54.32 Management :Rest and Activity Modificati on: Avoid activities that worsen the pain.Physi aiden Therapy: Strengthen ing and stretching exercises can help relieve symptoms.M edications : Over-the-c ounter pain relievers (like NSAIDs) or muscle relaxants may be beneficial - cyclobenza leigh ann script sentHeat/C old Therapy: Applying heat or ice can help alleviate pain.Injec tions: In some cases, corticoste roid injections may be recommende d- will refer if worseningW hen to Seek Medical Attention: Severe pain that does not improveLos s of bowel or bladder controlPro gressive weakness in the leg-f/u if worsening [id number] MD Patricia [facility] ([facility]) [address] [facility] [place] [address] 08/09/2024 16:49:18 08/15/2024 09:37:17 Left side sciatica [id number] 52731 M54.32 Management :Rest and Activity Modificati on: Avoid activities that worsen the pain.Physi aiden Therapy: Strengthen ing and stretching exercises can help relieve symptoms.M edications : Over-the-c ounter pain relievers (like NSAIDs) or muscle relaxants may be beneficial - cyclobenza leigh ann script sentHeat/C old Therapy: Applying heat or ice can help alleviate pain.Injec tions: In some cases, corticoste roid injections may be recommende d- will refer if worseningW hen to Seek Medical Attention: Severe pain that does not improveLos s of bowel or bladder controlPro gressive weakness in the leg-f/u if worsening Essential hypertension [id number] I10 BP Goal: {{Less than 140/90* Le ss than 150/90}}BP Controlled : {{yes no*} } increase losartan to 100 mg dailyHealt hy Weight: {{4'10= 91-118 lbs 4'11= 94-123 lbs 5'= 97-127 lbs 5'1= 100-131 lbs 5'2= 104-135 5' 3= 107-140 lbs 5'4= 110-144 lbs* 5'5= 115-149 lbs 5'6= 118-154 lbs 5'7= 121-158 lbs 5'8= 125-163 lbs 5'9= 128-168 lbs 5'10= 132-173 lbs 5'11= 136-178 lbs 6'= 140-183 lbs 6'1= 144-188 lbs 6'2= 148-193 lbs 6'3= 152-199 lbs 6'4= 156-204 lbs}}Discu ssed: Low sodium balanced diet, moderate exercise at least 3-4 times per week for an average of 40 minutes, limiting alcohol to 1 drink per day (F) or 2 drinks per day (M), and smoking cessation if currently smoking.Ne xt Visit: {{1* 2 3 4 5 6 7 8 9 10 11 12} }{{week(s) month(s)* }} [id number] Radha [facility]ier [facility] ([facility]) [address] [place] [address] [place] [address] 09/26/2024 17:06:54 10/02/2024 10:23:25 Essential hypertension 68617343 I10 BP Goal: {{Less than 140/90* Le ss than 150/90}}BP Controlled : {{yes* no} }Healthy Weight: {{4'10= 91-118 lbs 4'11= 94-123 lbs 5'= 97-127 lbs 5'1= 100-131 lbs 5'2= 104-135 5' 3= 107-140 lbs 5'4= 110-144 lbs* 5'5= 115-149 lbs 5'6= 118-154 lbs 5'7= 121-158 lbs 5'8= 125-163 lbs 5'9= 128-168 lbs 5'10= 132-173 lbs 5'11= 136-178 lbs 6'= 140-183 lbs 6'1= 144-188 lbs 6'2= 148-193 lbs 6'3= 152-199 lbs 6'4= 156-204 lbs}}Discu ssed: Low sodium balanced diet, moderate exercise at least 3-4 times per week for an average of 40 minutes, limiting alcohol to 1 drink per day (F) or 2 drinks per day (M), and smoking cessation if currently smoking.Ne xt Visit: {{1 2 3* 4 5 6 7 8 9 10 11 12} }{{week(s) month(s)* }} Health Concerns Section Related Observation LastModified by Organization Detai ls LastModified Time None Recorded Concern Status LastModified by Organization Details LastModified Time None Recorded Advance Directives Directive None Recorded Payers Encounter Date Sequence Insurance Name Policy Number Policy Franklin Covered Member ID Franklin Member ID Guarantor Name 05/02/2023 1 [facility] - DOS ON OR AFTER 21 (MEDICAID REPLACEMENT - HMO) Delma Chiu [id number] Delma Chiu 05/01/2024 1 *SELF PAY* Dalton Chiu 07/11/2024 2 [place] [facility] [place] [facility] Delma Chiu [id number] Delma Chiu 08/09/2024 2 [place] [facility] PUBLIC [facility] Delma Chiu [id number] Delma Chiu 09/26/2024 2 [place] [facility] Delma Chiu [id number] Delma Chiu 09/26/2024 1 [facility] (MEDICAID REPLACEMENT - HMO) [id number] Delma Chiu [id number] Delma Chiu Notes Date Note Type Note Provider Name and Address Organization Details Recorded Time 3 text/html Hypertension F/UReported bypatient.Associated Symptoms:no dizziness; no lightheadedness; no chest pain; no shortness of breath; no palpitations; no edema; no calf pain with exertion Lifestyle:regular exercise; limiting/avoiding salt Medications:taking medications as directed; no side effects from medication Delma is here for a f/u visit after surgery on her L ankle. She states her pain is well controlled at this time. JERMAN Parry Attn: Accounting,[address] [place] [address], [phone], [facility] 05/06/2023 00:42:28 4 text/html Annual GYNReported bypatient.Menstrual cycle:Normal menses Urinary symptoms:No hematuria; No incontinence Vulva:No genital lesion Vagina:Normal vaginal discharge Breast:No breast pain; No breast lump; No nipple discharge Sexual complaints:No sexual complaints; No pain during intercourse; Normal libido Menopausal Symptoms:No menopausal symptoms; Normal vaginal lubrication Psychological symptoms:No PMDD;Depression Preventive measures:Encourage self breast examination; Encourage regular exercise; Followed with Q3 year pap smear and high risk HPV typing; Needs to schedule mammogram; Needs to schedule colonoscopyHypertension F/UReported bypatient.Associated Symptoms:no dizziness; no lightheadedness; no chest pain; no shortness of breath; no palpitations; no edema; no calf pain with exertion Lifestyle:not exercising regularly;high salt intake Medications:no side effects from medication;not taking medications as directed JERMAN Parry Attn: Accounting,[address] [facility], [place], [address], [facility] 05/01/2024 11:32:25 4 text/html Hypertension F/UReported bypatient.Associated Symptoms:no dizziness; no lightheadedness; no chest pain; no shortness of breath; no palpitations; no edema; no calf pain with exertion Lifestyle:regular exercise; limiting/avoiding salt Medications:no side effects from medication;not taking medications as directed Delma is here today for f/u. She is out of her medications. She is having left sided low back pain. She reports sciatica in the past and this feels similar. Has pain down the left leg. JERMAN Parry Attn: Accounting,[address] [facility], [place], [address], [facility] 07/12/2024 22:40:31 4 text/html Hypertension F/UReported bypatient.Associated Symptoms:no dizziness; no lightheadedness; no chest pain; no shortness of breath; no palpitations; no edema; no calf pain with exertion Lifestyle:regular exercise; limiting/avoiding salt Medications:no side effects from medication;not taking medications as directed Delma is here today for f/u. She is out of her medications. She is having left sided low back pain. She reports sciatica in the past and this feels similar. Has pain down the left leg. Not getting any better with home interventions. JERMAN Parry Attn: Accounting,[address] [facility], [place], [address], [facility] 08/13/2024 13:59:24 4 text/html Hypertension F/UReported bypatient.Associated Symptoms:no dizziness; no lightheadedness; no chest pain; no shortness of breath; no palpitations; no edema; no calf pain with exertion Lifestyle:regular exercise; limiting/avoiding salt Medications:taking medications as directed; no side effects from medication JERMAN Parry Attn: Accounting,[address] [facility], [place], [address], [facility] 09/27/2024 22:58:31 OBGyn Episode No OBEpisode recorded.
--- OUTSIDE RECORDS SUMMARY | 2025-03-08 06:09 | XMS_ITS | Data Portability ---
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 I have recommended open reduction internal fixation. I have discussed the option of nonsurgical treatment but this will predictably lead to premature posttraumatic arthritis due to tibiotalar instability. I explained the application of a plate with screws. The syndesmosis would be tested and syndesmotic tight rope placed if indicated after fixation. Risk of complications such as infection blood clots posttraumatic arthritis discussed. She has no personal or family history of DVT. She does not smoke. I explained that the plate and screws would stay in for ever less they need to be removed for some reason such as infection. She would like to proceed. I have explained we need to get the swelling down before surgery and will schedule surgery 5 days from today assuming the swelling has satisfactorily diminished. I have wrapped her foot and ankle with soft roll and over wrapped with an Reggie wrap and she was placed in a Darco shoe and written instructions were provided to her. She will stop the naproxen at this time. We will proceed as discussed. 30 minutes were spent total care this patient more than half the time spent in wgvz-ly-feom care. [email or web address] Not available 04/07/2023 14:16:12 04/21/2023 04/21/2023 HPI: Patient returns. She is 9 days out left lateral malleolus ORIF. Patient states she has not stepped on left leg at all. There is evidence splint that she has been walking on it. Splints very clean. Pain overall is well controlled. She is taking a baby aspirin twice a day. Physical exam: Patient's splint was removed. She has just a minimal swelling in the ankle not in the foot. Incision looks well healed. Skin edges look normal. No bruising noted. Impression: Patient is 9 days out from left lateral ORIF. She was placed back into her splint with good padding. She will continue be strict nonweightbearing with elevation at home and this was reiterated to her again. She will continue baby aspirin twice a day. We will see her back at her 1 month follow-up from surgery. We will get x-rays at that time. We should be able to start some early motion as well as transition her to a boot as long as his incision looks good. Not available 04/21/2023 09:38:10 05/05/2023 05/05/2023 HPI: Patient called in her splint on the left ankle has been sleeping in coming undone. We had her come into evaluated. She states she has not stepped on it. The splint was disheveled and dirty. I did remove the bias layer and the underlayer looked as if it was not unwrapped at all. I did remove the entire wrapping. physical exam:Incision looks very good. Skin edges look healed. No skin edge necrosis noted. Trace swelling in the ankle and none in the foot. At this point we did wrap her and soft wrap and I am going to place her in a cam walker boot. She may remove the boot several times a day Work on dorsiflexion of ankle. This was an isolated lateral malleolus fracture think early motion is reasonable. Again she is still strict nonweightbearing. We will see her back in 3 weeks with new x-rays. At that point we should allow her start be weight-bearing. And start formal physical therapy for rehab. Not available 05/05/2023 15:32:38 05/26/2023 05/26/2023 HPI: Patient returns. She is now 6 weeks out from left lateral malleolus fracture ORIF. She has been in the boot and nonweightbearing. She is working at dorsiflexion at home. Overall pain is mild. Physical exam: Patient's incision is perfectly healed. She has minimal swelling in the ankle. She has about 15 dorsiflexion. No tenderness over the lateral malleolus to palpation. Impression: Patient is doing well 6 weeks out left lateral malleolus fracture ORIF. At this point she will be weight-bearing as tolerated. She can transition to a good shoe from the boot as her comfort allows. We will set up formal physical therapy to work on rehabbing with range of motion and strengthening exercises. Advised her not to overdo it with her activities and she understands. She would like to go back to work on Tuesday and she feels that she can tolerate her job and I think this will be fine. We will see her in a month with 1 final x-ray at that time. Not available 05/26/2023 11:35:30 06/30/2023 06/30/2023 HPI: Patient returns. She is 10 weeks out lateral malleolus ORIF. She did go to therapy. She has problems getting this set up. She has been back to work. She has been walking and moving the ankle. She is having no real symptoms in the ankle. She will note a little bit of swelling by the end of the day but overall very mild. Physical exam: Patient is walking very well today. She has no limp. . Minimal swelling in the ankle none in the foot. She has 20 of dorsiflexion and good subtalar motion. incision is well healed. Impression: Patient is now 10 weeks out left lateral malleolus ORIF. X-rays look excellent. Looks to be well healed. She has no stiffness in the ankle. 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 She is going to set this up. Overall she is well healed and relatively doing well. I think we can see her back as needed. Not available 06/30/2023 10:48:03 Plan of Treatment Reminders Order Date Submit Date Provider Last Modified By Organization Details Last Modified Time Details Appointments None recorded. Lab None recorded. Referral physical therapist referral - see attached 2022 023 [email or web address] [facility], [address] [place], [address], 3 08:21:45 Procedures None recorded. Surgeries None recorded. Imaging XR, ankle 2022 023 [email or web address] [facility], [address] [facility], [place], [address], 3 08:50:49 XR, ankle 2022 023 [email or web address] [facility], [address] [place] [address], [place], [address], 3 08:21:45 XR, ankle, 2 view 2022 023 [email or web address] [facility], [address] [place] [address], [place], [address], 3 16:25:15 XR, ankle 2022 023 [email or web address] [facility], [address] [place] [address], [place], [address], 3 16:34:37 Medication Orders oxycodone 5 mg tablet 2022 023 [email or web address] [id number], [address] [facility], [place], [id number], 3 09:52:24 Patient TargetsNo targets recorded. Patient InstructionsNo instructions recorded. Reason for Referral Physical Therapist Referral for Closed fracture of lateral malleolus see attached Referring Physician: Nick Mendez, Orthopedic Surgery, Encounter Date: 05/26/2023 Results Created Date Observation Date Name Description Value Unit Range Abnormal Flag Note LastModifiedBy Organization Detail LastModifiedTime 04/12/20 23 04/12/2023 URINE HCG QUAL/ POINT OF CARE ur preg NEGATI VE TESTI NG PERFO RMED BY SURGI OSCAR SERVI AJITH PERSO NNEL. Not Available [facility] (Lab) [address] [place], [address], 04/12/2023 13:30:34 04/12/20 23 04/12/2023 URINE HCG QUAL/ POINT OF CARE lot no. [id number] Not Available [facility] (Lab) [address] [place], [address], 04/12/2023 13:30:34 04/12/20 23 04/12/2023 URINE HCG QUAL/ POINT OF CARE pos QC POSITI VE Not Available [facility] (Lab) [address] [place], [address], 04/12/2023 13:30:34 04/12/20 23 04/12/2023 URINE HCG QUAL/ POINT OF CARE neg QC NEGATI VE Not Available [facility] (Lab) [address] [place], [address], 04/12/2023 13:30:34 04/12/20 23 04/12/2023 MRSA/ STAPH AUREU S, NASAL , PCR MRSA, nasal NEGATI VE Not Available [facility] (Lab) [address] [place], [address], 04/12/2023 13:34:57 04/12/20 23 04/12/2023 MRSA/ STAPH AUREU S, NASAL , PCR staph aureus, nasal NEGATI VE Not Available [facility] (Lab) [address] [place], [address], 04/12/2023 13:34:57 04/05/20 23 04/04/2023 XR, ankle , 3 or more view No observ ation record ed. [email or web address] Not Available 03/18 09:52:11 04/05/20 23 04/04/2023 XR, foot, 3 or more view No observ ation record ed. [email or web address] Not Available 03/18 09:52:11 04/07/20 XR, ankle No observ ation record ed. [email or web address] [facility] [address], [place], [address], 04/07/2023 14:13:55 04/12/20 23 04/12/2023 XR, ankle , 2 view [facility] [address], [place] [address] Ravi messina Name: DELMA CHIU Access ion #: [id number] Sex: F : 1974 6 Locati on: Attend ing Physic adolfo: NICK MYERS Orderi Physic adolfo: NICK MYERS Exam Date: 023 12:02 PM Exam Name: XR ANKLE LT 2V Admitt ing Diagno sis(es ): RADIOL OGY REPORT - FINAL EXAM: XR ANKLE LT 2V HISTOR Y: ORIF Lt Ankle COMPAR SHANITA: 2022 TECHNI QUE: AP latera l and obliqu e intrao perati ve images are saved. Dose 328.18 Harmon rads Fluoro time: 49.2 second s Three cine images are saved. FINDIN GS: Page 1 of 2 [facility] Ravi messina Name: DELMA CHIU Access ion #: [id number] Sex: F : 1974 6 Exam Date: 023 12:02 PM Exam Name: XR ANKLE LT 2V Admitt ing Diagno sis(es ): A metall ic plate screw device is noted fixing a distal fibula r fractu re. IMPRES MARIA DEL CARMEN: ORIF residu als. Create d and electr onical ly signed by: Kanu reno MD Signed Date: 023 6:02 PM (CT) Dictat ed by: Kanu reno MD DD: 023 6:02 PM (CT) DT: 023 6:02 PM (CT) Page 2 of 2 [email or web address] [facility] (Imaging) [address] [place], [address], 04/13/2023 16:43:46 05/05/20 23 XR, ankle , 2 view No observ ation record ed. [facility] [address], [place], [address], 05/05/2023 15:29:45 05/26/20 23 XR, ankle No observ ation record ed. [email or web address] [facility] [address], [place], [address], 05/26/2023 11:34:18 06/30/20 23 XR, ankle No observ ation record ed. [email or web address] [facility] [address], [place], [address], 06/30/2023 10:46:29 Result Notes None recorded. Problems Name Problem SNOMED Code Status Onset Date Resolution Date Notes Provider Name and Address Organization Details Recorded Time Pain of left ankle joint 10426661051090 103 Active 2022 NELSON Ruffin, [facility] 3 12:32:02 Closed fracture of lateral malleolus 14295934 Active 2022 NELSON Ruffin, [facility] [employer] [facility] 3 09:01:30 Closed fracture of lateral malleolus 06313859 Active 2022 Alivia main, [facility] [employer] [facility] 3 11:14:59 Problem Notes None recorded. Procedures Surgical History None recorded. Imaging Results Imaging Date Name Status LastModified by Organ [facility] Details LastModified Time 04/04/2023 XR, ankle, 3 or more view completed Information not available 04/05/2023 09:52:11 04/04/2023 XR, foot, 3 or more view completed Information not available 04/05/2023 09:52:11 04/07/2023 XR, ankle completed [email or web address] [facility] [address], [place], [address], 04/07/2023 14:13:55 04/12/2023 XR, ankle, 2 view completed [email or web address] [facility] ([facility]) [address], [place], [address], 04/13/2023 16:43:46 05/05/2023 XR, ankle, 2 view completed [facility] [address], [place], [address], 05/05/2023 15:29:45 05/26/2023 XR, ankle completed [facility] [address], [place], [address], 05/26/2023 11:34:18 06/30/2023 XR, ankle completed [facility] [address], [place], [address], 06/30/2023 10:46:29 Procedure Notes None recorded. Medical Equipment None Reported. Medications Name Sig Start Date Stop Date Status Note LastModified by Organization Details LastModified Time cyclobenzap rine 10 mg tablet TAKE 1 TABLET BY MOUTH THREE TIMES DAILY NEEDED FOR MUSCLE SPASM active Not Available Not Available No t Available ibuprofen 800 mg tablet TAKE 1 TABLET BY MOUTH THREE TIMES DAILY NEEDED FOR PAIN active Not Available Not Available No t Available prednisone 20 mg tablet TAKE 2 TABLETS BY MOUTH DAILY active Not Available Not Available No t Available amlodipine 5 mg tablet TAKE 1 TABLET BY MOUTH EVERY DAY active Not Available Not Available No t Available acetaminoph en 500 mg tablet TAKE 2 TABLETS BY MOUTH EVERY 6 HOURS. MAX 4000 MG ACETAMINO PHEN TYLENOL PER 24 HOURS 06/30 completed Not Available Not Available Not Available lidocaine 5 % topical patch APPLY 1 PATCH TO SKIN ONCE A DAY 06/30 completed Not Available Not Available Not Available aspirin 81 mg chewable tablet TAKE 1 TABLET BY MOUTH TWICE DAILY 06/30 completed Not Available Not Available Not Available naproxen 500 mg tablet TAKE 1 TABLET BY MOUTH TWICE DAILY 05/05 completed Not Available Not Available Not Available oxycodone 5 mg tablet TAKE 1 TABLET BY MOUTH EVERY 4 HOURS NEEDED 06/30 completed Not Available Not Available Not Available cyclobenzap rine 5 mg tablet TAKE 1 TABLET BY MOUTH THREE TIMES DAILY NEEDED FOR MUSCLE SPASM 05/05 completed Not Available Not Available Not Available lidocaine 5 % topical ointment APPLY 1 GRAM TOPICALLY TO THE AFFECTED AREA FOUR TIMES DAILY 06/30 completed Not Available Not Available Not Available Vitals None Recorded Social History None recorded. Functional Status Question Answer Note LastModified by Organizat ion Details LastModified Time What is your level of alcohol consumption? Occasional [email or web address] Information not available 04/07/2023 Mental Status None recorded. Family History Relationship Description Onset Age of this Age Resolved Age Notes LastModified by Organization Details LastModified Time Maternal Grandmother Heart disease [email or web address] Not available 2022 12:30:52 Mother Hypertensive disorder [email or web address] Not available 2022 12:31:08 Mother Diabetes mellitus [email or web address] Not available 2022 12:31:16 Medical History No medical history recorded. Gynecological HistoryNo gynecological history recorded. Obstetrics History GPAL:G 0 P 0 0 0 0 Past Encounters Encounter ID Performer Location Encounter Start Date Encounter Closed Date Diagnosis/Indication Diagnosis SNOMED-CT Code Diagnosis ICD10 Code Diagnosis Note [id number] Nick Mendez MD [facility] [address] 04/07/2023 12:17:17 04/07/2023 14:23:01 Pain of left ankle joint 0891487150 [id number] M25.572 [id number] MD DANIS Choi_NERI [address] [address] 04/21/2023 08:57:31 04/21/2023 10:00:29 Closed fracture of lateral malleolus 44770270 S82.62XD Postoperative visit 1836 71188 Z09 [id number] Nick Mendez MD [facility] [address] 05/05/2023 14:46:05 05/05/2023 16:03:23 Postoperative visit 744450085 Z09 [id number] Nick Mendez MD [facility] [address] [place] [address] 05/26/2023 10:54:47 05/26/2023 11:49:41 Postoperative visit 425900284 Z09 Closed fra cture of lateral malleolus 99567999 S82.62XD [id number] Nick Mendez MD [facility] [address] [place] [address] 06/30/2023 09:48:57 06/30/2023 10:54:25 Closed fracture of lateral malleolus 46738576 S82.62XD Health Concerns Section Related Observation LastModified by Organization Detai ls LastModified Time None Recorded Concern Status LastModified by Organization Details LastModified Time None Recorded Advance Directives Directive None Recorded Payers Encounter Date Sequence Insurance Name Policy Number Policy Franklin Covered Member ID Franklin Member ID Guarantor Name 04/07/2023 1 [facility] ON OR AFTER 04/16/21 (MEDICAID REPLACEMENT - HMO) Delma Chiu [id number] Delma Chiu 04/21/2023 1 [facility] ON OR AFTER 04/16/21 (MEDICAID REPLACEMENT - HMO) Delma Chiu [id number] Delma Chiu 05/05/2023 1 [facility] ON OR AFTER 04/16/21 (MEDICAID REPLACEMENT - HMO) Delma Chiu [id number] Delma Chiu 05/26/2023 1 [facility] ON OR AFTER 04/16/21 (MEDICAID REPLACEMENT - HMO) Delma Chiu [id number] Delma Chiu 06/30/2023 1 [facility] ON OR AFTER 04/16/21 (MEDICAID REPLACEMENT - HMO) Delma Chiu [id number] Delma Chiu Notes Date Note Type Note Provider Name and Address Organization Details Recorded Time 04/07/2023 text/html Patient is a 47-year-old female who fell twisting her ankle on 04/03/2023. She went to urgent care the next day and from there was sent to outpatient hospital for x-rays which demonstrated a displaced lateral malleolus fracture left ankle. No other fracture identified. X-rays of the foot were also obtained which showed no additional fracture. She was told to follow-up with orthopedic surgeon. She has been walking on it this entire time. She has not been using any crutches and did not have a splint. In fact she has been working at a [employer] these last 2 days. Nick Mendez MD [address] [place] [address], [facility] [address], [place], [address], [place] [facility] [place] [employer] [facility] 04/07/2023 14:16:28 OBGyn Episode No OBEpisode recorded.
[2025-03-08 06:12] VITALS: BP 153/97; PULSE 69; RESP 15; TEMP 35.9; O2SAT 100
--- NOTE | 2025-03-08 06:56 | ED_ITS ---
HPI - Extremity Injury (Lower) General Chief Complaint: Extremity Injury, Lower Stated Complaint: R foot pain Time Seen by Provider: 03/08/25 06:49 History of Present Illness HPI Narrative: Pt presents with complaint of pain to right foot and mediaol ankle for awhile. Pt injured left foot and thinks she may have been favoring that and overusing right foot. Left LE now fine. Pt denies injury. Related Data Allergies Allergy/AdvReac Type Severity Reaction Status Date / Time No Known Allergies Allergy Verified 03/08/25 06:15 Review of Systems Review of Systems: All systems reviewed & are unremarkable except as noted in HPI and below PMFSH Past Medical History Medical History HTN (hypertension) Surgical History Surgical History No pertinent past surgical history Social History Social History Smoking status: Never smoker Substance use: never Gender identity (if verbalized by the patient): Female Exam Const: General: healthy appearing and no acute distress Nutritional Appearance: well nourished Orientation/consciousness: patient oriented x3 Limitations: no limitations Resp: Effort & Inspection: normal respiratory effort Cardio: Rate: regular rate Rhythm: regular rhythm GI: GI Palp: Yes Soft to palpation Auscultation: normal bowel sounds Skin: General skin exam: normal color Rashes: no rashes Neuro: General: patient oriented x3, moves all extremities and no focal motor deficits Extrem: Other: tender to palpation over foot extensor tendon right fool and ankle no swelling. Pt reproduced with dorsiflexion of foot. Psych: Mental Status: mental status grossly normal Course Vital Signs Vital signs: Vital Signs Temperature 96.7 F L 03/08/25 06:12 Pulse Rate 69 03/08/25 06:12 Respiratory Rate 15 03/08/25 06:12 Blood Pressure 153/97 H 03/08/25 06:12 Pulse Oximetry 100 03/08/25 06:12 Oxygen Delivery Room Air 03/08/25 06:12 Temperature 97.8 F 03/08/25 07:22 Pulse Rate 76 03/08/25 07:22 Respiratory Rate 16 03/08/25 07:22 Blood Pressure 127/76 03/08/25 07:22 Pulse Oximetry 98 03/08/25 07:22 Oxygen Delivery Room Air 03/08/25 06:12 MDM - Extremity Injury (Lower) MDM Narrative Medical decision making narrative: Pt has tenderness over dorsiflexor tendons and x ray neg. likely tendonitis. Discharge Plan Discharge Clinical Impression: Tendonitis of ankle Patient Disposition: Home Condition: Stable Instructions: Antibiotic Form, Tendinitis (ED) Patient Language: Japanese Prescriptions: New naproxen [Naprosyn] 500 mg tablet 500 mg PO BID Qty: 20 0RF No Action naproxen 500 mg tablet 500 mg PO BID PRN (Reason: pain) Qty: 20 0RF cyclobenzaprine 5 mg tablet 5 mg PO TID PRN (Reason: muscle spasm) Qty: 10 0RF ibuprofen 800 mg tablet 800 mg PO TID PRN (Reason: pain) Qty: 30 0RF cyclobenzaprine 10 mg tablet 10 mg PO TID PRN (Reason: muscle spasm) Qty: 14 0RF prednisone 20 mg tablet 40 mg PO DAILY Qty: 8 0RF Follow-up/Referrals: Sharifa,PREMA Thakkar [Primary Care Provider] -
[2025-03-08 07:22] VITALS: BP 127/76; PULSE 76; RESP 16; TEMP 36.6; O2SAT 98
== END 2025-03-08 07:54 | disposition home or self-care (01) ==
LOC: ANHED 07:10
PROVIDERS: Emergency Provider Emergency Medicine; PCP Nurse Practitioner Family
DX: M77.51 Other enthesopathy of right foot and ankle (principal); I10 Essential (primary) hypertension
CPT/HCPCS: 73630; 99283